=== PATIENT | female | born 1975 | race Caucasian/White ===

== ENCOUNTER 2019-03-18 21:14 | Emergency (ER) | payer SELFPAY ==
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
--- OUTSIDE RECORDS SUMMARY | 2019-03-18 21:16 | XMS REPORT ---
:1975 Author Organization [facility] Address [address] [place] [address] Dr. [address] [place] [address] Care Team Providers Name Role Phone Unavailable Unavailable Unavailable Problems This patient has no known problems. Allergies, Adverse Reactions, Alerts This patient has no known allergies or adverse reactions. Medications This patient has no known medications. Encounters Start End Encounter Admission Attending Care Care Encounter Date/Time Date/Time Type Type Clinicians Facility Department ID 2019-04-02 2019-04-02 Outpatient [facility] [id number] 00:00:00 00:00:00 2018-07-06 2018-07-06 Outpatient [facility] [id number] 00:00:00 00:00:00 2018-06-01 2018-06-01 Outpatient [facility] [id number] 00:00:00 00:00:00 2018-03-29 2018-03-29 Outpatient [facility] [id number] 10:58:36 10:58:36 2018-03-27 2018-03-27 Outpatient [facility] [id number] 09:36:13 09:36:13 2018-03-22 2018-03-22 Outpatient [facility] [id number] 00:00:00 00:00:00 2018-03-21 2018-03-21 Outpatient [facility] [id number] 00:00:00 00:00:00 2018-03-20 2018-03-20 Outpatient [facility] [id number] 09:53:59 09:53:59 2018-03-14 2018-03-14 Outpatient [facility] [id number] 00:00:00 00:00:00 2018-03-13 2018-03-13 Outpatient [facility] [id number] 00:00:00 00:00:00 2018-03-09 2018-03-09 Emergency [facility] [id number] 18:03:37 18:03:37
[2019-03-18] MEDS ORDERED: ACETAMINOPHEN 325 MG TABLET ONE (21:26)
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
[2019-03-19 00:31] VITALS: O2SAT 100
[2019-03-19 00:32] VITALS: BP 122/78; TEMP 99
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
== END 2019-03-18 23:03 | disposition home or self-care (01) ==
LOC: ER 21:14
DX: M23.92 Unspecified internal derangement of left knee (principal); I10 Essential (primary) hypertension; F17.210 Nicotine dependence, cigarettes, uncomplicated; V49.9XXA Car occupant (driver) (passenger) injured in unspecified traffic accident, initial encounter; Y93.89 Activity, other specified; Y92.9 Unspecified place or not applicable
CPT/HCPCS: 99284